=== PATIENT | female | born 1960 | race Caucasian/White ===

== ENCOUNTER 2017-10-11 07:45 | Emergency (ER) | END 2017-10-11 09:48 | disposition home or self-care (01) ==

== ENCOUNTER 2018-03-28 09:11 | Emergency (ER) | END 2018-03-28 11:03 | disposition home or self-care (01) ==

== ENCOUNTER 2018-10-18 10:16 | Emergency (ER) | payer OTHER ==
[~2018-10-18] VITALS: Ht 149.9 cm; Wt 87.5 kg
[~2018-10-18 10:16] MED LIST: ATEN50TA PO; CYCL10TA7 PO; HYDR-4011 PO; IBUP-1542 PO; LISI10TA2 PO; MAG355OR14 PO; NAPR-985 PO; OMEP20CA16 PO; OMEP20CA9 PO
[2018-10-18 10:27] VITALS: Ht 149.9 cm; Wt 87.5 kg
[2018-10-18] MEDS ORDERED: DOCU-144 PO (12:12)
[2018-10-18] MEDS ORDERED: SOD CHLORIDE 0.9% 500 ML IV STA (12:13)
[2018-10-18] MEDS ORDERED: FAMOTIDINE 20 MG TAB PO STA (12:13)
[2018-10-18] MEDS ORDERED: HYDR25TA6 PO (12:13)
[2018-10-18] MEDS ORDERED: LIDOCAINE/MYLANTA 40 ML BTL PO STA (12:13)
[2018-10-18] MEDS ORDERED: ATEN50TA PO (12:13)
[2018-10-18] MEDS ORDERED: RANI150T5 PO (12:14)
[2018-10-18] MEDS ORDERED: AMLO5TAB4 PO (12:15)
[2018-10-18] MEDS ORDERED: OMEP40CA6 PO (12:16)
[2018-10-18] MEDS ORDERED: ACET1TAB40 PO (12:17)
[2018-10-18] MEDS ORDERED: IBUP-1542 PO (12:17)
[2018-10-18] MEDS ORDERED: MULTI PO (12:18)
[2018-10-18] MEDS ORDERED: ERGO500013 PO (12:18)
--- NOTE | 2018-10-18 13:13 | ERD ---
ER Documentation Chief Complaint Chief Complaint EPIGASTRIC PAIN X 3 DAYS HPI 4-year-old female presenting with epigastric pain since last night. She describes as burning, constant, radiating to her mid back. Improved with not eating, worsened by eating. Denies eating any spicy food last night. She is on omeprazole and ranitidine daily. No associated nausea, vomiting, diarrhea, chest pain, shortness of breath, melena, hematochezia. ROS All systems reviewed and are negative except as per history of present illness. Medications Home Meds Reported Medications Multivitamins* (Theragran*) 1 Tab Tab, 1 TAB PO DAILY, TAB 10/18/18 Ergocalciferol (Vitamin D2) (VITAMIN D2) 50,000 Unit Capsule, 92857 UNIT PO Q7D, CAP 10/18/18 Ibuprofen* (Ibuprofen*) 600 Mg Tablet, 600 MG PO Q8 PRN for NEEDED, TAB 10/18/18 Acetaminophen with Codeine (Acetaminophen-Cod #3 Tablet) 1 Each Tablet, 1 TAB PO NEEDED, #7 TAB 10/18/18 Omeprazole* (Omeprazole*) 40 Mg Capsule.dr, 40 MG PO DAILY, #30 CAP 10/18/18 Amlodipine Besylate* (Norvasc*) 5 Mg Tablet, 5 MG PO DAILY, TAB 10/18/18 Ranitidine Hcl* (Ranitidine Hcl*) 150 Mg Tablet, 150 MG PO HS, #30 TAB 10/18/18 Hydrochlorothiazide* (Hydrochlorothiazide*) 25 Mg Tab, 25 MG PO DAILY, #30 TAB 10/18/18 Atenolol* (Atenolol*) 50 Mg Tablet, 50 MG PO DAILY, #30 TAB 10/18/18 Docusate Sodium* (Colace*) 100 Mg Capsule, 100 MG PO BID, #60 CAP 10/18/18 Discontinued Reported Medications Lisinopril* (Lisinopril*) 10 Mg Tablet, 20 MG PO DAILY 12/27/12 Atenolol* (Atenolol*) 50 Mg Tablet, 50 MG PO DAILY 12/27/12 Omeprazole* (Omeprazole*) 20 Mg Capsule.dr, 40 MG PO DAILY 12/27/12 Lisinopril* (Lisinopril*) 10 Mg Tablet, 10 MG PO DAILY 09/09/11 Atenolol* (Atenolol*) 50 Mg Tablet, 50 MG PO DAILY 09/09/11 Omeprazole* (Prilosec*) 20 Mg Capsule.dr, 20 MG PO DAILY 09/09/11 Discontinued Scripts Cyclobenzaprine Hcl* (Cyclobenzaprine Hcl*) 10 Mg Tablet, 10 MG PO TID, #15 TAB Prov:JOEL ADDISON PA-C 03/28/18 Hydrocodone/Acetaminophen (Nicollet 5-325 Tablet) 1 Each Tablet, 1 TAB PO Q6H PRN for PAIN, #7 TAB Prov:JOEL ADDISON PA-C 03/28/18 Naproxen* (Naprosyn*) 500 Mg Tablet, 500 MG PO BID PRN for PAIN AND/OR INFLAMMATION, #30 TAB Prov:JOEL ADDISON PA-C 03/28/18 Ibuprofen* (Ibuprofen*) 600 Mg Tablet, 600 MG PO Q8 for PAIN AND/OR INFLAMMATION, #60 TAB Prov:ERICK WYLIE MD 10/11/17 Mag Hydrox/Al Hydrox/Simeth (Maalox Advanced Suspension) 355 Ml Oral.susp, 2 TSP PO TID for PAIN, #24 Prov:ERICK WYLIE MD 10/11/17 Ibuprofen* (Motrin*) 600 Mg Tab, 600 MG PO Q8 for 3 Days, #30 TAB Prov:DONNIE WEBSTER, TATY 04/20/16 Allergies Allergies: Coded Allergies: No Known Allergy (Unverified , 10/18/18) PMhx/Soc History of Surgery: Yes ( x1) Anesthesia Reaction: No Hx Neurological Disorder: No Hx Respiratory Disorders: No Hx Cardiac Disorders: Yes (HTN) Hx Psychiatric Problems: No Hx Miscellaneous Medical Probl: No Hx Alcohol Use: No Hx Substance Use: No Hx Tobacco Use: No Smoking Status: Never smoker FmHx Family History: No diabetes Physical Exam Vitals Vital Signs Date Temp Pulse Resp B/P (MAP) Pulse Ox O2 O2 Flow FiO2 Time Delivery Rate 10/18/18 97.7 66 19 136/68 98 Room Air 12:12 (90) 10/18/18 97.9 76 19 133/63 96 10:27 (86) Physical Exam Const: No acute distress Head: Atraumatic Eyes: Normal Conjunctiva ENT: Normal External Ears, Nose and Mouth. Neck: Full range of motion. No meningismus. Resp: Clear to auscultation bilaterally Cardio: Regular rate and rhythm, no murmurs. 2+ distal pulses Abd: Soft, non tender, non distended. Normal bowel sounds Skin: No petechiae or rashes Back: No midline or flank tenderness Ext: No cyanosis, or edema Neur: Awake and alert Psych: Normal Mood and Affect Result Diagram: 10/18/18 1225 10/18/18 1225 Results 24 hrs Laboratory Tests Test 10/18/18 12:25 10/18/18 12:26 White Blood Count 8.0 10^3/ul Red Blood Count 4.72 10^6/ul Hemoglobin 12.6 g/dl Hematocrit 38.7 % Mean Corpuscular Volume 82.0 fl Mean Corpuscular Hemoglobin 26.7 pg Mean Corpuscular Hemoglobin Concent 32.6 g/dl Red Cell Distribution Width 13.7 % Platelet Count 320 10^3/UL Mean Platelet Volume 9.7 fl Immature Granulocytes % 0.400 % Neutrophils % 70.3 % Lymphocytes % 21.5 % Monocytes % 6.4 % Eosinophils % 1.2 % Basophils % 0.2 % Nucleated Red Blood Cells % 0.0 /100WBC Immature Granulocytes # 0.030 10^3/ul Neutrophils # 5.6 10^3/ul Lymphocytes # 1.7 10^3/ul Monocytes # 0.5 10^3/ul Eosinophils # 0.1 10^3/ul Basophils # 0.0 10^3/ul Nucleated Red Blood Cells # 0.0 10^3/ul Sodium Level 141 mmol/L Potassium Level 3.6 mmol/L Chloride Level 103 mmol/L Carbon Dioxide Level 30 mmol/L Anion Gap 8 Blood Urea Nitrogen 16 mg/dl Creatinine 0.45 mg/dl Est Glomerular Filtrat Rate mL/min > 60 mL/min Glucose Level 114 mg/dl Calcium Level 9.7 mg/dl Total Bilirubin 0.4 mg/dl Direct Bilirubin 0.00 mg/dl Indirect Bilirubin 0.4 mg/dl Aspartate Amino Transf (AST/SGOT) 27 IU/L Alanine Aminotransferase (ALT/SGPT) 25 IU/L Alkaline Phosphatase 90 IU/L Total Protein 7.5 g/dl Albumin 4.3 g/dl Globulin 3.20 g/dl Albumin/Globulin Ratio 1.34 Lipase 56 U/L Urine Color YELLOW Urine Clarity CLEAR Urine pH 7.0 Urine Specific [place] 1.015 Urine Ketones NEGATIVE mg/dL Urine Nitrite NEGATIVE mg/dL Urine Bilirubin NEGATIVE mg/dL Urine Urobilinogen NEGATIVE mg/dL Urine Leukocyte Esterase NEGATIVE Breana/ul Urine Hemoglobin NEGATIVE mg/dL Urine Glucose NEGATIVE mg/dL Urine Total Protein NEGATIVE mg/dl Current Medications Medications Dose Sig/Beba Start Time Status Last (Trade) Ordered Route PRN Stop Time Admin Dose Reason Admin Sodium 500 ml @ Q1H STAT 10/18/18 10/18/18 Chloride 500 mls/hr IV 12:13 12:23 10/18/18 13:12 Famotidine 20 mg ONCE STAT 10/18/18 DC 10/18/18 (Pepcid) PO 12:13 12:23 10/18/18 12:14 40 ml ONCE STAT 10/18/18 DC 10/18/18 Miscellaneous PO 12:13 12:23 Medication 10/18/18 12:14 (Gi Cocktail (2)) Procedures/MDM EMERGENT LABS AND DIAGNOSTIC STUDIES: Lab Results above were reviewed and interpreted by me. CBC: no anemia or evidence of infection CMP: No evidence of clinically significant electrolyte abnormality, acidosis, renal failure, hypoglycemia, liver disease, or biliary obstruction Lipase: no evidence of pancreatitis UA: no evidence of infection Initial Nursing notes reviewed. Previous Medical Records requested via the Electronic Health Record. EMERGENCY DEPARTMENT COURSE / MEDICAL DECISION MAKING: Patient is presenting with likely acute exacerbation of her chronic gastritis. Vitals are stable. Her last endoscopy was about 4 years ago so I recommended the patient go back to her primary care doctor to schedule a referral to GI doctor for possible repeat endoscopy as she may have ulcers. She was treated with a GI cocktail and Pepcid here. She feels much better. Repeat abdominal exam benign. Return precautions discussed. Patient understands discharge plan. Recommended increasing her omeprazole and ranitidine twice daily for 1 week to help improve her symptoms. Patient's blood pressure was elevated (>120/80) but appears stable without evidence of hypertensive emergency or urgency. The patient was counseled about the risks of hypertension and urged to pursue outpatient monitoring and therapy within a week with their primary care physician. Departure Diagnosis: Primary Impression: Gastritis Gastritis type: unspecified gastritis Chronicity: unspecified Gastritis bleeding: without bleeding Qualified Codes: K29.70 - Gastritis, unspecified, without bleeding Additional Impression: Epigastric pain Condition: Stable Patient Instructions: Gastritis Vs. Ulcer [facility] Usted se puente hecho un examen mdico de control que le indica que no est en bree condicin que requiera tratamiento urgente en el Departamento de Emergencia. Un estudio ms profundo y el tratamiento de ricci condicin pueden esperar sin ningn riesgo hasta que usted sea atendida/o en el consultorio de ricci mdico o bree clnica. Es responsabilidad suya arreglar bree diego para el seguimiento del evon. MANEJO DE CONDICIONES NO URGENTES EN EL FUTURO 1) Si usted tiene un mdico de atencin primaria: Usted debera llamar a ricci mdico de atencin primaria antes de venir al departamento de emergencia. Despus de las horas de consultorio, ricci doctor o ricci asociado/a est disponible por telfono. El mdico o enfermero de saranya en el servicio telefnico puede asesorarle por nazario medio para atender el problema, o evon contrario se puede programar bree diego. 2) Si usted no tiene un mdico de atencin primaria: Llame al mdico o clnica de referencia que aparece abajo aliya las horas de consultorio para hacer bree diego para que le vean. CLINICAS: [facility] [phone] [facility] [phone] [facility] [phone] [place] [phone] [facility] 062 [phone] [id number] [facility] [phone] [address] Additional Instructions: Lupis bree diego con ricci medico primario. Regresa si estas empeorando. Claire ricci omeprazole and ranitidine ds veces al chandrakant por bree semana pra controllar dario sintomas. RO SMALLS MD October 18, 2018 13:13
[2018-10-18 13:58] VITALS: BP 135/79; PULSE 65; RESP 18
== END 2018-10-18 14:00 | disposition home or self-care (01) ==
LOC: E/R 10:16
DX: K29.70 Gastritis, unspecified, without bleeding (principal); I10 Essential (primary) hypertension
CPT/HCPCS: 36415; 71045; 80053; 81003; 83690; 85025; 93005; 96360; 96361; J7040; Z7502; Z7610